=== PATIENT | male | born 1995 | race Hispanic/Latino ===

== ENCOUNTER 2019-02-26 19:33 | Emergency (ER) | payer OTHER ==
[2019-02-26 19:41] VITALS: BP 128/74; PULSE 83; RESP 16; TEMP 99.1; O2SAT 100
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
== END 2019-02-26 22:00 | disposition home or self-care (01) ==
LOC: H.ER 19:33
DX: S09.90XA Unspecified injury of head, initial encounter (principal); S52.302A Unspecified fracture of shaft of left radius, initial encounter for closed fracture; V43.52XA Car driver injured in collision with other type car in traffic accident, initial encounter; Y92.410 Unspecified street and highway as the place of occurrence of the external cause